=== PATIENT | female | born 1960 | race Caucasian/White ===

== ENCOUNTER 2023-01-04 07:38 | Day surgery (SDC) | payer OTHER ==
[2023-01-03 14:59] VITALS: BMI 21.2
[2023-01-04] MEDS ORDERED: PROPOFOL 120 ML ONE (07:47)
[2023-01-04 07:56] VITALS: TEMP 96.7
[2023-01-04] MEDS ORDERED: GLYCOPYRROLATE 0.2 MG/1 ML VIAL ONE (08:06)
[2023-01-04] MEDS ORDERED: ATROPINE SO4 0.4 MG/1 ML VIAL ONE (08:07)
[2023-01-04 09:07] VITALS: RESP 18
[2023-01-04 09:28] VITALS: BP 118/61; PULSE 66
== END 2023-01-04 09:40 | disposition home or self-care (01) ==
LOC: FASU-ENDO 07:38
PROVIDERS: ATTEND Internal Medicine Gastroenterology
PROC: 0DB98ZX Excision of Duodenum, Via Natural or Artificial Opening Endoscopic, Diagnostic (ICD-10-PCS; 2023-01-04)
PROC: 0DB68ZX Excision of Stomach, Via Natural or Artificial Opening Endoscopic, Diagnostic (ICD-10-PCS; 2023-01-04)
PROC: 0D5H8ZZ Destruction of Cecum, Via Natural or Artificial Opening Endoscopic (ICD-10-PCS; principal; 2023-01-04 08:20)
DX: Z12.11 Encounter for screening for malignant neoplasm of colon (principal); K55.20 Angiodysplasia of colon without hemorrhage; K29.50 Unspecified chronic gastritis without bleeding; R10.13 Epigastric pain
CPT/HCPCS: 88305-TC; 88342-TC